=== PATIENT | female | born 1955 | race Caucasian/White ===

== ENCOUNTER 2017-12-12 20:59 | Emergency (ER) | payer OTHER, BC ==
[2017-12-12] MEDS ORDERED: Lidocaine 1% 20 ML MDV INFILT ONE (21:00)
[2017-12-12] MEDS ORDERED: Diphtheria,Pertussis(Acell),Tetanus Vaccine 0.5 ML SDV IM ONE (22:29)
--- NOTE | 2017-12-13 10:42 | ER ---
DATE SEEN: 12/12/2017 TIME SEEN: The patient was seen at 2200 hours. HISTORY OF PRESENT ILLNESS: She caught her right index dominant hand finger in the car door. Within approximately half an hour, the patient was seen at 2200 hours. PAST MEDICAL HISTORY: Hypothyroidism, hypertension, and obesity. No major surgeries. No diabetes, heart disease, or other serious illnesses. SOCIAL HISTORY: She works as a legal administrative secretary at [employer] and she has a significant administrative role, which she has worked for many years. PHYSICAL EXAMINATION: VITAL SIGNS: Blood pressure 155/71, heart rate 70, respirations 18, oxygen saturation 98%, temperature 36.7 degrees centigrade. GENERAL: Pleasant overweight woman, in mild distress. Her son is a radiographer cardiac catheterization and put a tube gauze over it. This is collected to the finger. Consequently soaked to easily remove it. She is worried that she may have avulsed part of her nail, but she has not. HEENT: PERRLA intact. Pharynx without abnormality. LUNGS: Clear. HEART: Without murmur. ABDOMEN: Increased abdominal girth. No tenderness. EXTREMITIES: Right thumb is normal. Right index finger radial side of the distal 1/4th of the nail, subungual hematoma is cleared because there is shearing of the distal nail plate from the subungual surface. Consequently, there is bleeding under the nail plate that readily exit the distal nail. Laceration extends under the dital nail edge from the radial to the ulnar side of the distal finger. Wound was cleansed and then digital block was provided with adequate hemostasis, lidocaine 1%. Then 7 stitches of interrupted 4-0 Ethilon placed, two through the nail. ASSESSMENT: Nail laceration 3.5 cm. Single-layer closure with 7 stitches. The patient tolerated the procedure well. The patient was dismissed with Tylenol 1000 mg and ibuprofen 600 mg together every 6 hours and for breakthrough pain, hydrocodone 8 tablets packing given to the patient. Elevate finger, use ice packs. Follow up with doctor in 10 to 14 days to have sutures out or earlier if any sign of infection, swelling, tenderness, or any red streaks or excessive pain. /[id number] ALEXIS/MEHUL DIAZD
== END 2017-12-12 22:49 | disposition home or self-care (01) ==
LOC: FB.ED 20:59
DX: S61.310A Laceration without foreign body of right index finger with damage to nail, initial encounter (principal); W23.0XXA Caught, crushed, jammed, or pinched between moving objects, initial encounter
CPT/HCPCS: 12002; 90471; 90715; 99283